=== PATIENT | male | born 1975 | race Caucasian/White ===

== ENCOUNTER 2017-03-06 05:11 | Emergency (ER) | payer SELFPAY ==
[~2017-03-06] VITALS: Ht 167.6 cm; Wt 73.4 kg
[2017-03-06 05:47] VITALS: BP 133/81
== END 2017-03-06 06:13 | disposition left against medical advice (07) ==
LOC: EME 05:11
DX: T50.901A Poisoning by unspecified drugs, medicaments and biological substances, accidental (unintentional), initial encounter (principal)
CPT/HCPCS: 99281; 99285